=== PATIENT | female | born 1955 | race Caucasian/White ===

== ENCOUNTER 2018-03-27 04:32 | Outpatient (CLI) | payer MEDICARE, BC ==
[~2018-03-27 04:32] MED LIST: AMYL1CAP54 PO; COL100C PO; HYDR2TAB28 PO; LACT1CAP26 PO; LIDO20SO PO; LORA1TAB PO; MAG355OR18 PO; MORP-64 PO; PANT40TA39 PO; PROM25TA14 PO; SENN-161 PO; ZOF4T PO
== END 2018-03-27 23:59 | disposition home or self-care (01) ==
LOC: DIABETIC 04:32
PROVIDERS: ATTEND Family Medicine
DX: Z71.3 Dietary counseling and surveillance (principal); E63.8 Other specified nutritional deficiencies; Z68.20 Body mass index [BMI] 20.0-20.9, adult; K86.1 Other chronic pancreatitis; Z87.891 Personal history of nicotine dependence
CPT/HCPCS: 97802

== ENCOUNTER 2018-10-16 01:37 | Outpatient (CLI) | payer MEDICARE, BC ==
[~2018-10-16 01:37] MED LIST changes: -SENN-161 PO; +SENN-162 PO
== END 2018-10-16 23:59 | disposition home or self-care (01) ==
LOC: DIABETIC 01:37
PROVIDERS: ATTEND Family Medicine
DX: K86.1 Other chronic pancreatitis (principal)
CPT/HCPCS: 97802

== ENCOUNTER 2018-12-24 02:25 | Outpatient (CLI) | payer MEDICARE, BC | END 2018-12-24 23:59 | disposition home or self-care (01) | LOC: DIABETIC 02:25 | PROVIDERS: ATTEND Family Medicine | DX: K86.1 Other chronic pancreatitis (principal); Z71.3 Dietary counseling and surveillance | CPT/HCPCS: 97803 ==

== ENCOUNTER 2021-11-03 08:23 | Emergency (ER) | payer MEDICARE, BC ==
[~2021-11-03] VITALS: Ht 157.5 cm; Wt 48.6 kg
[~2021-11-03 08:23] MED LIST changes: -AMYL1CAP54 PO; -COL100C PO; +DULO30CA52 PO; +FURO20TA4 PO; -HYDR2TAB28 PO; -LACT1CAP26 PO; -LIDO20SO PO; +LIPA1CAP28 PO; -LORA1TAB PO; -MAG355OR18 PO; +MAGN400O6 PO; -MORP-64 PO; +MORP100S7 PO; +ONDA8TAB13 PO; -PANT40TA39 PO; -SENN-162 PO; +SENN8.6T19 PO; -ZOF4T PO
[2021-11-03] MEDS ORDERED: morphine 10mg/ml inj. IV ONE (09:10)
[2021-11-03] MEDS ORDERED: mag hydrox/Alum hydrox/simeth 30ml oral suspension PO ONE (09:20)
[2021-11-03] MEDS ORDERED: LIDOcaine Viscous 15ml cup MM PRN (09:20)
[2021-11-03 09:21] LABS: BASOPHILS % (AUTO) 0.4 % (0-1); EOSINOPHILS % (AUTO) 0.2 % (0-6); LYMPHOCYTES # (AUTO) 0.7 X10'3 (1.1-4.8); LYMPHOCYTES % (AUTO) 7.5 % (21-51); MEAN CORPUSCULAR HEMOGLOBIN 31.2 PG (27.0-31.0); MEAN CORPUSCULAR HGB CONC 34.1 g/dL (33.0-36.5); MEAN CORPUSCULAR VOLUME 91.7 FL (78-98); MEAN PLATELET VOLUME 10.5 FL (7.4-10.4); MONOCYTES # (AUTO) 0.5 X10'3 (0-0.9); MONOCYTES % (AUTO) 5.3 % (2-12); NEUTROPHILS # (AUTO) 7.7 X10'3 (1.8-7.7); NEUTROPHILS % (AUTO) 86.6 % (42-75); PLATELET COUNT 174 X10'3 (140-440); RED BLOOD COUNT 4.47 X10'6 (4.20-5.60); WHITE BLOOD COUNT 8.8 X10'3 (4.5-11.0)
[2021-11-03] MEDS ORDERED: haloperidol lactate 5mg/ml inj IV ONE (09:25)
[2021-11-03] MEDS ORDERED: proMETHazine 6.25 mg/5 ml UD oral syrup PO PRN (09:25)
--- NOTE | 2021-11-03 09:27 | NUR ---
relieving rn for break, pt is constantly moaning loudly, curled in positions, c/o "pancreatitis pain", medicated per order. Pt said pain has decreased to6/10 after receiving morphine, moaning has lessened
[2021-11-03] MEDS ORDERED: normal saline 1000ML IV soln IVB ONE (09:35)
[2021-11-03 10:06] LABS: LARGE PLATELETS FEW; PLATELET ESTIMATE NORMAL
[2021-11-03 10:08] LABS: ALANINE AMINOTRANSFERASE 13 U/L (12-78); ALBUMIN 3.3 G/DL (3.4-5.0); ALBUMIN/GLOBULIN RATIO 0.9 (1.1-1.5); ALKALINE PHOSPHATASE 96 IU/L (46-116); AMYLASE 48 U/L (25-115); ANION GAP 7 (8-16); ASPARTATE AMINO TRANSFERASE 20 U/L (10-37); BILIRUBIN,TOTAL 0.4 MG/DL (0.1-1.0); BLOOD UREA NITROGEN 7 MG/DL (7-18); CALCIUM 9.1 MG/DL (8.5-10.1); CHLORIDE 103 MMOL/L (99-107); CREATININE 0.87 MG/DL (0.40-0.90); GLUCOSE 131 MG/DL (70-104); LIPASE < 50 U/L (73-393); MAGNESIUM 1.8 MG/DL (1.5-2.4); SODIUM 142 MMOL/L (135-145); eGFR 66 ML/MIN
[2021-11-03 10:13] LABS: POTASSIUM 2.8 MMOL/L (3.5-5.1)
[2021-11-03] MEDS ORDERED: potassium chloride 8mEq ER tablet PO SCH (10:15)
[2021-11-03] MEDS ORDERED: potassium Cl 10 mEq/100mL bag IV SCH (10:15)
[2021-11-03] MEDS ORDERED: morphine 4 MG/ML inj SYRINge IV ONE (13:00)
[2021-11-03 13:11] LABS: CLARITY,URINE SLIGHTLY CLOUDY (Clear); COLOR,URINE YELLOW (Yellow); GLUCOSE, URINE NEGATIVE (Neg); KETONES,URINE NEGATIVE (Neg); LEUKOCYTE ESTERASE ,URINE NEGATIVE (Neg); NITRITES, URINE NEGATIVE (Neg); OCCULT BLOOD,URINE NEGATIVE (Neg); PH,URINE 8.5 (4.8-8.0); PROTEIN,URINE NEGATIVE (Neg); UROBILINOGEN,URINE 0.2 E.U/dL (0.2-1.0)
[2021-11-03 13:45] LABS: UA COLLECTION TYPE OTHER
[2021-11-03 13:53] LABS: SQUAMOUS EPITHELIAL CELL,UR MODERATE /LPF (FEW)
[2021-11-03 13:54] LABS: BACTERIA,URINE FEW /HPF (Neg); RBC,URINE 0-2 /HPF (0-2); WBC,URINE 0-4 /HPF (0-4)
[2021-11-03 13:59] LABS: AMORPHOUS PHOSPHATES 1+
[2021-11-03] MEDS ORDERED: POTA-82 PO (14:48)
[2021-11-03 15:06] VITALS: BP 121/56
== END 2021-11-03 15:55 | disposition home or self-care (01) ==
LOC: ER 08:24
DX: R10.84 Generalized abdominal pain (principal); E87.6 Hypokalemia; R11.2 Nausea with vomiting, unspecified; I10 Essential (primary) hypertension; G89.29 Other chronic pain; F41.9 Anxiety disorder, unspecified; F32.A Depression, unspecified; F12.90 Cannabis use, unspecified, uncomplicated; Z90.49 Acquired absence of other specified parts of digestive tract; Z87.11 Personal history of peptic ulcer disease; Z98.51 Tubal ligation status; Z98.890 Other specified postprocedural states; Z88.8 Allergy status to other drugs, medicaments and biological substances; Z88.1 Allergy status to other antibiotic agents; Z79.899 Other long term (current) drug therapy
CPT/HCPCS: 36415; 71045; 80053; 81001; 82140; 82150; 83605; 83690; 83735; 84132; 84145; 85008; 85025; 96365; 96375; 96376; 99285; J2270; J2274; J3480; J7030; Q0169

== ENCOUNTER 2021-12-01 11:04 | Emergency (ER) | payer MEDICARE, BC ==
[~2021-12-01] VITALS: Ht 157.5 cm; Wt 47.7 kg
[~2021-12-01 11:04] MED LIST changes: +POTA-82 PO
[2021-12-01 11:57] LABS: BASOPHILS % (AUTO) 0.5 % (0-1); EOSINOPHILS % (AUTO) 0.6 % (0-6); HEMATOCRIT 42.1 % (35.0-45.0); HEMOGLOBIN 14.5 g/dl (12.0-16.0); MEAN CORPUSCULAR HGB CONC 34.4 g/dL (33.0-36.5); MEAN PLATELET VOLUME 10.8 FL (7.4-10.4); MONOCYTES # (AUTO) 0.5 X10'3 (0-0.9); MONOCYTES % (AUTO) 6.3 % (2-12); NEUTROPHILS # (AUTO) 6.4 X10'3 (1.8-7.7); NEUTROPHILS % (AUTO) 79.6 % (42-75); PLATELET COUNT 177 X10'3 (140-440); RED BLOOD COUNT 4.68 X10'6 (4.20-5.60); RED CELL DISTRIBUTION WIDTH 12.9 % (11.5-14.5)
[2021-12-01 12:04] LABS: ALANINE AMINOTRANSFERASE 13 U/L (12-78); ALBUMIN 3.5 G/DL (3.4-5.0); ALBUMIN/GLOBULIN RATIO 0.9 (1.1-1.5); ALKALINE PHOSPHATASE 101 IU/L (46-116); ANION GAP 16 (8-16); ASPARTATE AMINO TRANSFERASE 17 U/L (10-37); BILIRUBIN,TOTAL 0.5 MG/DL (0.1-1.0); BLOOD UREA NITROGEN 8 MG/DL (7-18); BUN/CREATININE RATIO 9.3 (6.6-38.0); CALCIUM 9.3 MG/DL (8.5-10.1); CHLORIDE 101 MMOL/L (99-107); CREATININE 0.86 MG/DL (0.40-0.90); GLUCOSE 142 MG/DL (70-104); LIPASE < 50 U/L (73-393); SODIUM 145 MMOL/L (135-145); TOTAL CARBON DIOXIDE 27.6 MMOL/L (24-32); TOTAL PROTEIN 7.4 G/DL (6.4-8.2); eGFR 66 ML/MIN
[2021-12-01 12:07] LABS: POTASSIUM 2.8 MMOL/L (3.5-5.1)
[2021-12-01] MEDS ORDERED: POTASSIUM BICARB 20meq eff tab 20 MEQ TABLET.EFF PO ONE (12:10)
[2021-12-01] MEDS ORDERED: magnesium 2GM in 50ml NS 50 ML IV ONE (12:10)
[2021-12-01] MEDS ORDERED: POTASSIUM BICARB 20meq eff tab 20 MEQ TABLET.EFF PO SCH (12:10)
[2021-12-01] MEDS ORDERED: potassium Cl 10 mEq/100mL bag IV ONE ×2 (13:30→14:30)
[2021-12-01] MEDS: morphine 4 MG/ML inj SYRINge IV PRN ×2 (13:49→14:12)
--- NOTE | 2021-12-01 14:25 | NUR ---
pt to/from ct without incident
[2021-12-01 14:33] LABS: CLARITY,URINE CLOUDY (Clear); COLOR,URINE YELLOW (Yellow); GLUCOSE, URINE NEGATIVE (Neg); KETONES,URINE TRACE mg/dl (Neg); LEUKOCYTE ESTERASE ,URINE NEGATIVE (Neg); NITRITES, URINE NEGATIVE (Neg); OCCULT BLOOD,URINE NEGATIVE (Neg); PROTEIN,URINE NEGATIVE (Neg); UROBILINOGEN,URINE 0.2 E.U/dL (0.2-1.0)
[2021-12-01 14:38] LABS: UA COLLECTION TYPE CLN CATCH MIDSTREAM
[2021-12-01 14:39] LABS: SQUAMOUS EPITHELIAL CELL,UR FEW /LPF (FEW)
[2021-12-01 14:40] LABS: AMORPHOUS PHOSPHATES 3+; BACTERIA,URINE 1+ /HPF (Neg); RBC,URINE 0-2 /HPF (0-2); WBC,URINE 0-4 /HPF (0-4)
[2021-12-01] MEDS ORDERED: morphine 4 MG/ML inj SYRINge IV ONE (16:45)
[2021-12-01 17:40] VITALS: BP 138/58
== END 2021-12-01 17:58 | disposition home or self-care (01) ==
LOC: ER 11:05
DX: R10.9 Unspecified abdominal pain (principal); R19.7 Diarrhea, unspecified; R11.2 Nausea with vomiting, unspecified; I10 Essential (primary) hypertension; G89.29 Other chronic pain; M54.9 Dorsalgia, unspecified; F32.9 Major depressive disorder, single episode, unspecified; F32.A Depression, unspecified; F12.10 Cannabis abuse, uncomplicated; Z88.8 Allergy status to other drugs, medicaments and biological substances; Z88.2 Allergy status to sulfonamides; Z88.6 Allergy status to analgesic agent
CPT/HCPCS: 36415; 74176; 80053; 81001; 83690; 85025; 96365; 96375; 96376; 99284; J2270; J3475; J3480; J7030

== ENCOUNTER 2021-12-28 14:03 | Emergency (ER) | payer MEDICARE, BC ==
[~2021-12-28] VITALS: Ht 157.5 cm; Wt 52.3 kg
[2021-12-28 14:20] VITALS: BP 146/71
[2021-12-28] MEDS ORDERED: morphine 4 MG/ML inj SYRINge IM ONE (16:20)
== END 2021-12-28 17:23 | disposition home or self-care (01) ==
LOC: ER 14:04
DX: M79.642 Pain in left hand (principal); G89.29 Other chronic pain; M54.50 Low back pain, unspecified; F12.90 Cannabis use, unspecified, uncomplicated; Z88.8 Allergy status to other drugs, medicaments and biological substances; Z90.49 Acquired absence of other specified parts of digestive tract; Z98.51 Tubal ligation status
CPT/HCPCS: 29125; 73110; 73130; 99284; J2270; A4565

== ENCOUNTER 2022-03-14 10:19 | Emergency (ER) | payer MEDICARE, BC ==
[~2022-03-14] VITALS: Ht 154.9 cm; Wt 50.0 kg
[2022-03-14] MEDS ORDERED: ketorolac tromethamine 15mg/ml inj. IV ONE (10:50)
[2022-03-14 11:19] LABS: BASOPHILS % (AUTO) 0.6 % (0-1); EOSINOPHILS % (AUTO) 0.4 % (0-6); HEMATOCRIT 41.2 % (35.0-45.0); HEMOGLOBIN 13.9 g/dl (12.0-16.0); LYMPHOCYTES % (AUTO) 16.7 % (21-51); MEAN CORPUSCULAR HEMOGLOBIN 31.4 PG (27.0-31.0); MEAN CORPUSCULAR HGB CONC 33.7 g/dL (33.0-36.5); MEAN CORPUSCULAR VOLUME 93.3 FL (78-98); MEAN PLATELET VOLUME 10.6 FL (7.4-10.4); MONOCYTES # (AUTO) 0.5 X10'3 (0-0.9); MONOCYTES % (AUTO) 7.5 % (2-12); NEUTROPHILS # (AUTO) 4.7 X10'3 (1.8-7.7); NEUTROPHILS % (AUTO) 74.8 % (42-75); PLATELET COUNT 167 X10'3 (140-440); RED BLOOD COUNT 4.42 X10'6 (4.20-5.60); RED CELL DISTRIBUTION WIDTH 13.1 % (11.5-14.5); WHITE BLOOD COUNT 6.2 X10'3 (4.5-11.0)
[2022-03-14 11:29] LABS: ALANINE AMINOTRANSFERASE 14 U/L (12-78); ALBUMIN 3.2 G/DL (3.4-5.0); ALBUMIN/GLOBULIN RATIO 0.9 (1.1-1.5); ALKALINE PHOSPHATASE 99 IU/L (46-116); ANION GAP 6 (8-16); ASPARTATE AMINO TRANSFERASE 18 U/L (10-37); BILIRUBIN,TOTAL 0.4 MG/DL (0.1-1.0); BLOOD UREA NITROGEN 6 MG/DL (7-18); BUN/CREATININE RATIO 7.4 (6.6-38.0); CALCIUM 9.6 MG/DL (8.5-10.1); CHLORIDE 103 MMOL/L (99-107); CREATININE 0.81 MG/DL (0.40-0.90); GLUCOSE 133 MG/DL (70-104); LIPASE < 50 U/L (73-393); POTASSIUM 3.4 MMOL/L (3.5-5.1); SODIUM 140 MMOL/L (135-145); TOTAL CARBON DIOXIDE 31.5 MMOL/L (24-32); TOTAL PROTEIN 6.9 G/DL (6.4-8.2); eGFR 71 ML/MIN
[2022-03-14] MEDS ORDERED: morphine 4 MG/ML inj SYRINge IV ONE (11:45)
[2022-03-14 11:50] LABS: ETHANOL < 0.010 GM/DL (0.0-0.010)
[2022-03-14] MEDS ORDERED: ondansetron/PF 4mg/2ml inj IV ONE (11:55)
[2022-03-14 11:59] LABS: LARGE PLATELETS FEW; PLATELET ESTIMATE NORMAL
--- NOTE | 2022-03-14 13:02 | NUR ---
CALLED MR [facility] INFORMED TO SANITOR PT .
[2022-03-14 14:02] VITALS: BP 118/57
== END 2022-03-14 14:00 | disposition home or self-care (01) ==
LOC: ER 10:20
DX: R10.11 Right upper quadrant pain (principal); G89.29 Other chronic pain; R11.0 Nausea; I10 Essential (primary) hypertension; F41.9 Anxiety disorder, unspecified; F32.A Depression, unspecified; F12.90 Cannabis use, unspecified, uncomplicated; Z87.11 Personal history of peptic ulcer disease; Z90.49 Acquired absence of other specified parts of digestive tract; Z98.51 Tubal ligation status; Z98.890 Other specified postprocedural states; Z88.8 Allergy status to other drugs, medicaments and biological substances; Z79.899 Other long term (current) drug therapy
CPT/HCPCS: 36415; 80053; 80320; 82140; 83690; 85008; 85025; 96374; 96375; 99284; J1885; J2270; J2405

== ENCOUNTER 2022-04-24 09:51 | Inpatient (IN) | payer MEDICARE, BC ==
[~2022-04-24] VITALS: Ht 157.5 cm; Wt 48.0 kg
[2022-04-24] MEDS ORDERED: ondansetron/PF 4mg/2ml inj IV ONE ×3 (10:15→20:08)
[2022-04-24] MEDS ORDERED: morphine 4 MG/ML inj SYRINge IV ONE ×3 (10:15→18:45)
[2022-04-24] MEDS ORDERED: LORazepam 2 mg/ml vial IV ONE (10:15)
--- NOTE | 2022-04-24 10:16 | NUR ---
ATTEMPT EKG, UNABLE AT THIS TIME PER PATIENTS PAIN LEVEL. AWAITING PAIN MED ORDERS.
--- NOTE | 2022-04-24 10:29 | NUR ---
ATTEMPT EKG AFTER PAIN MEDS, PATIENT REFUSING TO LAY ON BACK FOR EKG TEST. MADE AWARE.
[2022-04-24 10:38] LABS: BASOPHILS % (AUTO) 0.4 % (0-1); EOSINOPHILS % (AUTO) 0.3 % (0-6); HEMATOCRIT 39.8 % (35.0-45.0); HEMOGLOBIN 13.7 g/dl (12.0-16.0); LYMPHOCYTES # (AUTO) 0.8 X10'3 (1.1-4.8); LYMPHOCYTES % (AUTO) 12.5 % (21-51); MEAN CORPUSCULAR HEMOGLOBIN 31.9 PG (27.0-31.0); MEAN CORPUSCULAR HGB CONC 34.5 g/dL (33.0-36.5); MEAN CORPUSCULAR VOLUME 92.6 FL (78-98); MEAN PLATELET VOLUME 10.7 FL (7.4-10.4); MONOCYTES # (AUTO) 0.3 X10'3 (0-0.9); NEUTROPHILS # (AUTO) 5.5 X10'3 (1.8-7.7); NEUTROPHILS % (AUTO) 81.8 % (42-75); PLATELET COUNT 178 X10'3 (140-440); RED CELL DISTRIBUTION WIDTH 12.7 % (11.5-14.5); WHITE BLOOD COUNT 6.8 X10'3 (4.5-11.0)
[2022-04-24 11:16] LABS: LARGE PLATELETS FEW; PLATELET ESTIMATE NORMAL
[2022-04-24 11:53] LABS: ALANINE AMINOTRANSFERASE 19 U/L (12-78); ALBUMIN/GLOBULIN RATIO 0.8 (1.1-1.5); ALKALINE PHOSPHATASE 90 IU/L (46-116); ANION GAP 7 (8-16); ASPARTATE AMINO TRANSFERASE 21 U/L (10-37); BILIRUBIN,TOTAL 0.3 MG/DL (0.1-1.0); BLOOD UREA NITROGEN 6 MG/DL (7-18); BUN/CREATININE RATIO 6.8 (6.6-38.0); CALCIUM 9.5 MG/DL (8.5-10.1); CHLORIDE 102 MMOL/L (99-107); CREATININE 0.88 MG/DL (0.40-0.90); GLUCOSE 137 MG/DL (70-104); LIPASE < 50 U/L (73-393); SODIUM 141 MMOL/L (135-145); TOTAL CARBON DIOXIDE 32.5 MMOL/L (24-32); TOTAL PROTEIN 6.6 G/DL (6.4-8.2); eGFR 64 ML/MIN
[2022-04-24 11:56] LABS: POTASSIUM 2.7 MMOL/L (3.5-5.1)
[2022-04-24] MEDS ORDERED: magnesium 2GM in 50ml NS 50 ML IV PRN (12:00)
[2022-04-24] MEDS ORDERED: POTASSIUM BICARB 20meq eff tab 20 MEQ TABLET.EFF PO PRN (12:00)
[2022-04-24] MEDS ORDERED: potassium Cl 20 mEq SR tablet PO STA (12:10)
[2022-04-24] MEDS: potassium CL 10mEq/100ml bag 100 ML IV PRN (12:37)
[2022-04-24 16:40] LABS: ALBUMIN 3.1 G/DL (3.4-5.0); ANION GAP 9 (8-16); BLOOD UREA NITROGEN 5 MG/DL (7-18); CALCIUM 9.4 MG/DL (8.5-10.1); CHLORIDE 103 MMOL/L (99-107); CREATININE 0.71 MG/DL (0.40-0.90); GLUCOSE 135 MG/DL (70-104); POTASSIUM 3.4 MMOL/L (3.5-5.1); SODIUM 142 MMOL/L (135-145); TOTAL CARBON DIOXIDE 29.7 MMOL/L (24-32); eGFR 83 ML/MIN
[2022-04-24 17:00] LABS: CLARITY,URINE CLEAR (Clear); COLOR,URINE YELLOW (Yellow); GLUCOSE, URINE NEGATIVE (Neg); KETONES,URINE TRACE mg/dl (Neg); LEUKOCYTE ESTERASE ,URINE TRACE (Neg); NITRITES, URINE NEGATIVE (Neg); OCCULT BLOOD,URINE NEGATIVE (Neg); PH,URINE 8.5 (4.8-8.0); PROTEIN,URINE NEGATIVE (Neg); UROBILINOGEN,URINE 0.2 E.U/dL (0.2-1.0)
[2022-04-24 17:05] LABS: UA COLLECTION TYPE CLN CATCH MIDSTREAM
[2022-04-24 17:07] LABS: BACTERIA,URINE 2+ /HPF (Neg); MUCUS STRANDS NONE SEEN /LPF (Neg); RBC,URINE NONE SEEN /HPF (0-2); SQUAMOUS EPITHELIAL CELL,UR MANY /LPF (FEW); WBC,URINE 0-4 /HPF (0-4)
[2022-04-24] MEDS ORDERED: famotidine/PF 10 mg/ml inj IV ONE (20:00)
[2022-04-24] MEDS ORDERED: proCHLORperazine 10 MG/2 ml inj IV ONE (20:00)
[2022-04-24] MEDS ORDERED: PROM25TA14 PO (22:05)
[2022-04-24] MEDS ORDERED: potassium Cl 40MEQ/1/2NS 520ml 520 ML IV PRN (22:50)
[2022-04-24] MEDS ORDERED: magnesium hydroxide 30ml (MOM) UD suspension PO PRN ×2 (22:50)
[2022-04-24] MEDS ORDERED: sennosides 8.6mg tablet PO PRN (22:50)
[2022-04-24] MEDS: normal saline 1000ml 1,000 ML IV SCH (22:50)
[2022-04-24] MEDS ORDERED: magnesium 4gm in 100ml NS 100 ML IV PRN (22:50)
[2022-04-24] MEDS ORDERED: acetaminophen 325mg tablet PO PRN ×2 (22:50)
[2022-04-24] MEDS ORDERED: potassium Cl 20 mEq SR tablet PO PRN ×2 (22:50)
[2022-04-24] MEDS ORDERED: mag hydrox/Alum hydrox/simeth 30ml oral suspension PO PRN (22:50)
[2022-04-24] MEDS: diatr meglu/diatrizoate 30ml oral sol.-(3 dose) bottle PO SCH (22:58)
[2022-04-24] MEDS ORDERED: ondansetron 4mg rapidly disintigrating tab PO PRN (23:00)
[2022-04-24] MEDS ORDERED: morphine 10mg/0.5ml (conc. morphine) oral syringe PO PRN (23:05)
[2022-04-24] MEDS ORDERED: proMETHazine 25mg rectal suppository RC PRN (23:10)
[2022-04-24] MEDS: morphine 4 MG/ML inj SYRINge IV PRN (23:17)
[2022-04-24] MEDS: ondansetron/PF 4mg/2ml inj IV PRN (23:18)
[2022-04-25] MEDS ORDERED: proMETHazine 25mg tablet PO SCH
--- NOTE | 2022-04-25 00:01 | NUR ---
Pt. is refusing gastrografin and having ct scan with contrast. Dr. Perea was notified.
--- NOTE | 2022-04-25 00:12 | NUR ---
pt. refusing pheneregan at this time.
[2022-04-25] MEDS: morphine 4 MG/ML inj SYRINge IV PRN ×8 (01:35→23:58)
[2022-04-25] MEDS: ondansetron/PF 4mg/2ml inj IV PRN ×3 (06:56→21:54)
[2022-04-25] MEDS: diatr meglu/diatrizoate 30ml oral sol.-(3 dose) bottle PO SCH ×2 (07:00→21:59)
--- NOTE | 2022-04-25 07:04 | NUR ---
PT C/O ABD PAIN AND NAUSEA. MEDICATED WITH MORPHINE, ZOFRAN, AND PHENERGAN
[2022-04-25] MEDS: proMETHazine 25mg tablet PO SCH ×3 (08:00→16:00)
[2022-04-25] MEDS: potassium Cl 20 mEq SR tablet PO SCH (08:00)
[2022-04-25] MEDS: LIPASE/PROTEASE/AMYLASE 4,200 unit CAPSULE.DR PO SCH ×3 (08:00→18:00)
[2022-04-25] MEDS ORDERED: docusate sod 100mg capsule PO SCH (08:00)
[2022-04-25] MEDS ORDERED: furosemide 20MG tablet PO SCH (08:00)
[2022-04-25] MEDS: duloxetine 30mg CAPSULE.DR PO SCH (08:00)
[2022-04-25] MEDS: K and/or MAG REPLACEMENT MC SCH ×2 (08:00→21:33)
[2022-04-25 09:30] LABS: EOSINOPHILS % (AUTO) 0 % (0-6); HEMOGLOBIN 13.8 g/dl (12.0-16.0); LYMPHOCYTES # (AUTO) 1.1 X10'3 (1.1-4.8); MEAN PLATELET VOLUME 10.8 FL (7.4-10.4); MONOCYTES # (AUTO) 0.6 X10'3 (0-0.9)
[2022-04-25 09:31] LABS: BASOPHILS % (AUTO) 0.2 % (0-1); HEMATOCRIT 39.4 % (35.0-45.0); LYMPHOCYTES % (AUTO) 10.8 % (21-51); MEAN CORPUSCULAR HEMOGLOBIN 31.9 PG (27.0-31.0); MEAN CORPUSCULAR HGB CONC 34.9 g/dL (33.0-36.5); MEAN CORPUSCULAR VOLUME 91.5 FL (78-98); MONOCYTES % (AUTO) 6.1 % (2-12); NEUTROPHILS # (AUTO) 8.4 X10'3 (1.8-7.7); NEUTROPHILS % (AUTO) 82.9 % (42-75); PLATELET COUNT 189 X10'3 (140-440); RED BLOOD COUNT 4.31 X10'6 (4.20-5.60); RED CELL DISTRIBUTION WIDTH 12.7 % (11.5-14.5); WHITE BLOOD COUNT 10.2 X10'3 (4.5-11.0)
[2022-04-25 09:51] LABS: ALANINE AMINOTRANSFERASE 17 U/L (12-78); ALBUMIN 2.9 G/DL (3.4-5.0); ALBUMIN/GLOBULIN RATIO 0.8 (1.1-1.5); ALKALINE PHOSPHATASE 88 IU/L (46-116); ANION GAP 11 (8-16); ASPARTATE AMINO TRANSFERASE 26 U/L (10-37); BILIRUBIN,TOTAL 0.4 MG/DL (0.1-1.0); BLOOD UREA NITROGEN 4 MG/DL (7-18); CHLORIDE 104 MMOL/L (99-107); CREATININE 0.67 MG/DL (0.40-0.90); GLUCOSE 115 MG/DL (70-104); MAGNESIUM 1.7 MG/DL (1.5-2.4); POTASSIUM 3.3 MMOL/L (3.5-5.1); SODIUM 142 MMOL/L (135-145); TOTAL CARBON DIOXIDE 26.6 MMOL/L (24-32); TOTAL PROTEIN 6.6 G/DL (6.4-8.2); eGFR 88 ML/MIN
[2022-04-25 10:15] LABS: LARGE PLATELETS FEW; PLATELET ESTIMATE NORMAL
[2022-04-25] MEDS: normal saline 1000ml 1,000 ML IV SCH ×2 (11:30→21:46)
--- NOTE | 2022-04-25 11:37 | NUR ---
pt continues to c/o abd pain. educated pt re importance of ct with contrast. pt continues to refuse oral or iv contrast. pt states she has had it before and will not do it again. Dr han notified she states she will come down and see pt. CT notified
--- NOTE | 2022-04-25 14:12 | NUR ---
PT CONTINUES TO REFUSE ALL PO MEDS SHE STATES ONLY WANTS IV MORPHINE AND IV ZOFRAN. PT MEDICATED WITH BOTH
[2022-04-25] MEDS ORDERED: LUBI8CAP5 PO (16:58)
[2022-04-25] MEDS ORDERED: FURO40TA4 PO (16:58)
[2022-04-25] MEDS ORDERED: OMEP20CA16 PO (17:07)
[2022-04-25] MEDS ORDERED: ONDA4TAB12 PO (17:07)
[2022-04-25] MEDS ORDERED: [UNRECOGNIZED DRUG - OTHER] PO (17:07)
[2022-04-25] MEDS ORDERED: [UNRECOGNIZED DRUG - OTHER] PO (17:07)
[2022-04-25] MEDS ORDERED: MAG355OR18 PO (17:07)
[2022-04-25 18:00] VITALS: BP 143/82
[2022-04-25 21:25] VITALS: BP 143/82
--- NOTE | 2022-04-25 21:25 | NUR ---
PATIENT ADMITTED TO ROOM 356B FROM ER FOR INTRACTABLE PAIN WITH NAUSEA AND VOMITING. PLACED COMFORTABLE IN BED. VITAL SIGNS TAKEN AND RECORDED.
[2022-04-25] MEDS: sennosides 8.6mg tablet PO SCH (21:32)
[2022-04-25] MEDS ORDERED: diphenhydrAMINE 50 mg/ml inj IV PRN (21:40)
[2022-04-25] MEDS: enoxaparin 40mg/0.4ml syringe SQ SCH (21:57)
[2022-04-25 22:00] VITALS: BP 121/70
[2022-04-26] MEDS: morphine 4 MG/ML inj SYRINge IV PRN ×6 (02:22→19:59)
[2022-04-26] MEDS: ondansetron/PF 4mg/2ml inj IV PRN ×3 (04:22→19:54)
[2022-04-26] MEDS: normal saline 1000ml 1,000 ML IV SCH ×2 (05:16→15:38)
[2022-04-26 06:00] VITALS: BP 152/76
--- NOTE | 2022-04-26 06:45 | NUR ---
Problems reprioritized. Patient report given, questions answered & plan of care reviewed with RANDOLPH OMALLEY.
[2022-04-26] MEDS: diatr meglu/diatrizoate 30ml oral sol.-(3 dose) bottle PO SCH ×2 (07:51→10:20)
[2022-04-26] MEDS: duloxetine 30mg CAPSULE.DR PO SCH (07:54)
[2022-04-26] MEDS: proMETHazine 25mg tablet PO SCH ×3 (07:56→15:36)
[2022-04-26] MEDS: potassium Cl 20 mEq SR tablet PO SCH (08:00)
[2022-04-26] MEDS: sennosides 8.6mg tablet PO SCH ×2 (08:00→22:27)
[2022-04-26] MEDS: LIPASE/PROTEASE/AMYLASE 4,200 unit CAPSULE.DR PO SCH ×3 (08:00→17:52)
[2022-04-26] MEDS: K and/or MAG REPLACEMENT MC SCH ×2 (08:00→20:00)
[2022-04-26 08:39] LABS: BASOPHILS % (AUTO) 0.4 % (0-1); EOSINOPHILS # (AUTO) 0.1 X10'3 (0-0.9); EOSINOPHILS % (AUTO) 0.5 % (0-6); HEMATOCRIT 40.5 % (35.0-45.0); HEMOGLOBIN 13.8 g/dl (12.0-16.0); LYMPHOCYTES # (AUTO) 1.8 X10'3 (1.1-4.8); LYMPHOCYTES % (AUTO) 17.7 % (21-51); MEAN CORPUSCULAR HEMOGLOBIN 31.2 PG (27.0-31.0); MEAN CORPUSCULAR HGB CONC 34.2 g/dL (33.0-36.5); MEAN CORPUSCULAR VOLUME 91.3 FL (78-98); MEAN PLATELET VOLUME 10.7 FL (7.4-10.4); MONOCYTES # (AUTO) 0.7 X10'3 (0-0.9); MONOCYTES % (AUTO) 6.7 % (2-12); NEUTROPHILS # (AUTO) 7.5 X10'3 (1.8-7.7); NEUTROPHILS % (AUTO) 74.7 % (42-75); PLATELET COUNT 187 X10'3 (140-440); RED BLOOD COUNT 4.44 X10'6 (4.20-5.60); RED CELL DISTRIBUTION WIDTH 12.5 % (11.5-14.5)
[2022-04-26 08:44] LABS: ALANINE AMINOTRANSFERASE 14 U/L (12-78); ALBUMIN 2.9 G/DL (3.4-5.0); ALBUMIN/GLOBULIN RATIO 0.9 (1.1-1.5); ALKALINE PHOSPHATASE 86 IU/L (46-116); ANION GAP 11 (8-16); ASPARTATE AMINO TRANSFERASE 27 U/L (10-37); BILIRUBIN,TOTAL 0.6 MG/DL (0.1-1.0); BLOOD UREA NITROGEN 6 MG/DL (7-18); BUN/CREATININE RATIO 9.4 (6.6-38.0); CALCIUM 9.1 MG/DL (8.5-10.1); CHLORIDE 102 MMOL/L (99-107); CREATININE 0.64 MG/DL (0.40-0.90); GLUCOSE 116 MG/DL (70-104); MAGNESIUM 1.6 MG/DL (1.5-2.4); POTASSIUM 3.1 MMOL/L (3.5-5.1); SODIUM 136 MMOL/L (135-145); TOTAL CARBON DIOXIDE 23.2 MMOL/L (24-32); TOTAL PROTEIN 6.3 G/DL (6.4-8.2); eGFR > 90 ML/MIN
--- NOTE | 2022-04-26 10:03 | NUR ---
PAGER ID: [phone] MESSAGE: Deena Surg [id number] Re: [id number] Marcelo please call re: IV contrast concerns. Also, patient very painful can we do a CADD? Addendum: 04/26/22 at 1010 by Deena Johnson RN Per Dr Anne no Cadd pump. Dr Anne aware patients pain is still high. Also advised Dr Anne that patient states the last time she had IV contrast it made her feel like she was going to . After discussing with Dr Anne patient is only going to get PO contrast.
[2022-04-26 11:00] VITALS: BP 135/86
[2022-04-26] MEDS: potassium CL 10mEq/100ml bag 100 ML IV PRN ×4 (11:03→22:50)
[2022-04-26] MEDS ORDERED: LORazepam 2 mg/ml vial IV ONE (12:05)
[2022-04-26 14:30] VITALS: BP 159/70
--- NOTE | 2022-04-26 15:20 | NUR ---
Student documentation: I have reviewed and agree with all interventions, assessments performed and documented by Karen AZAR 1st semester student.
--- NOTE | 2022-04-26 16:55 | NUR ---
PAGER ID: [phone] MESSAGE: Deena Surg [phone] Re: Marcelo ThomasB please call re: Terence
--- NOTE | 2022-04-26 16:59 | NUR ---
Received orders for Ativan 0.5mg IV Q6h prn , also ok to give Zofran aware patient had Phenergan 85 min ago .
[2022-04-26] MEDS: LORazepam 2 mg/ml vial IV PRN (17:17)
[2022-04-26 18:00] VITALS: BP 163/80
--- NOTE | 2022-04-26 18:23 | NUR ---
Problems reprioritized. Patient report given, questions answered & plan of care reviewed with Jania Dykes RN.
--- NOTE | 2022-04-26 18:30 | NUR ---
Patient in room [facility]. I have received report from RANDOLPH OMALLEY and had the opportunity to ask questions and assume patient care.
[2022-04-26 22:00] VITALS: BP 164/98
[2022-04-26] MEDS: enoxaparin 40mg/0.4ml syringe SQ SCH (22:27)
[2022-04-27] MEDS: morphine 4 MG/ML inj SYRINge IV PRN ×4 (00:14→14:53)
[2022-04-27] MEDS: ondansetron/PF 4mg/2ml inj IV PRN ×2 (02:39→09:58)
[2022-04-27] MEDS: proMETHazine 25mg tablet PO SCH ×3 (03:59→07:38)
[2022-04-27 06:00] VITALS: BP 165/76
[2022-04-27] MEDS: normal saline 1000ml 1,000 ML IV SCH (06:06)
--- NOTE | 2022-04-27 06:30 | NUR ---
Problems reprioritized. Patient report given, questions answered & plan of care reviewed with STEVEN OMALLEY.
--- NOTE | 2022-04-27 06:35 | NUR ---
Patient in room [facility]. I have received report from Jania Dykes RN and had the opportunity to ask questions and assume patient care.
[2022-04-27 06:36] LABS: BASOPHILS # (AUTO) 0.1 X10'3 (0-0.2); BASOPHILS % (AUTO) 0.6 % (0-1); EOSINOPHILS # (AUTO) 0.1 X10'3 (0-0.9); EOSINOPHILS % (AUTO) 1.6 % (0-6); HEMATOCRIT 40.8 % (35.0-45.0); HEMOGLOBIN 13.8 g/dl (12.0-16.0); LYMPHOCYTES % (AUTO) 21.8 % (21-51); MEAN CORPUSCULAR HEMOGLOBIN 30.8 PG (27.0-31.0); MEAN CORPUSCULAR HGB CONC 33.8 g/dL (33.0-36.5); MEAN PLATELET VOLUME 10.5 FL (7.4-10.4); MONOCYTES # (AUTO) 0.7 X10'3 (0-0.9); MONOCYTES % (AUTO) 8.1 % (2-12); NEUTROPHILS # (AUTO) 6.1 X10'3 (1.8-7.7); NEUTROPHILS % (AUTO) 67.9 % (42-75); PLATELET COUNT 181 X10'3 (140-440); RED BLOOD COUNT 4.48 X10'6 (4.20-5.60); RED CELL DISTRIBUTION WIDTH 12.4 % (11.5-14.5); WHITE BLOOD COUNT 9.1 X10'3 (4.5-11.0)
[2022-04-27 07:07] LABS: ALANINE AMINOTRANSFERASE 17 U/L (12-78); ALBUMIN 2.7 G/DL (3.4-5.0); ALBUMIN/GLOBULIN RATIO 0.8 (1.1-1.5); ALKALINE PHOSPHATASE 78 IU/L (46-116); ANION GAP 10 (8-16); ASPARTATE AMINO TRANSFERASE 25 U/L (10-37); BILIRUBIN,TOTAL 0.5 MG/DL (0.1-1.0); BLOOD UREA NITROGEN 6 MG/DL (7-18); BUN/CREATININE RATIO 9.5 (6.6-38.0); CALCIUM 8.8 MG/DL (8.5-10.1); CHLORIDE 101 MMOL/L (99-107); CREATININE 0.63 MG/DL (0.40-0.90); GLUCOSE 85 MG/DL (70-104); MAGNESIUM 1.7 MG/DL (1.5-2.4); POTASSIUM 3.2 MMOL/L (3.5-5.1); SODIUM 136 MMOL/L (135-145); TOTAL CARBON DIOXIDE 24.7 MMOL/L (24-32); TOTAL PROTEIN 6.1 G/DL (6.4-8.2); eGFR > 90 ML/MIN
[2022-04-27] MEDS: sennosides 8.6mg tablet PO SCH (07:38)
[2022-04-27] MEDS: potassium Cl 20 mEq SR tablet PO SCH (07:38)
[2022-04-27] MEDS: duloxetine 30mg CAPSULE.DR PO SCH (07:38)
[2022-04-27] MEDS: LIPASE/PROTEASE/AMYLASE 4,200 unit CAPSULE.DR PO SCH ×2 (08:00→13:00)
[2022-04-27] MEDS: K and/or MAG REPLACEMENT MC SCH (08:00)
[2022-04-27 10:00] VITALS: BP 166/77
[2022-04-27] MEDS: LORazepam 2 mg/ml vial IV PRN (11:12)
[2022-04-27] MEDS ORDERED: PROM25TA14 PO (13:41)
[2022-04-27] MEDS ORDERED: ONDA8TAB13 PO (13:41)
[2022-04-27] MEDS ORDERED: OMEP20CA16 PO (13:41)
--- NOTE | 2022-04-27 15:15 | NUR ---
Pt Dc to home with . pt is A & O x4, painful and teary eyed. Pt states she feels nauseated, and 9/10 pain. States she doesn't want to go home. Pt says she will go home but understands she cannot be here too long. Pt verbalizes understanding of all DC orders and is able to teach back DC orders. Pt will continue home meds and make appropriate changes to Zofran 8mg instead of 4mg. Pt does not have new meds. Pt got dressed and IV's were removed intact x2. came to picker pt, pt wheeled to the front.
[2022-04-27] MEDS ORDERED: POTA8CAP20 PO (15:47)
== END 2022-04-27 15:21 | disposition home or self-care (01) | DRG 392 ==
LOC: ER 09:52 → ED HOLD 22:53 → EDBEDREQ 04-25 02:01 → SUR 3N 04-25 21:21
PROVIDERS: ADMIT Family Medicine; ATTEND Internal Medicine
DX: R11.2 Nausea with vomiting, unspecified (principal); K86.1 Other chronic pancreatitis; E44.1 Mild protein-calorie malnutrition; Z68.1 Body mass index [BMI] 19.9 or less, adult; E87.6 Hypokalemia; F32.A Depression, unspecified; Z66 Do not resuscitate; F41.9 Anxiety disorder, unspecified; F12.90 Cannabis use, unspecified, uncomplicated; M54.50 Low back pain, unspecified; G89.4 Chronic pain syndrome; I10 Essential (primary) hypertension; Z87.11 Personal history of peptic ulcer disease; Z88.8 Allergy status to other drugs, medicaments and biological substances; Z90.49 Acquired absence of other specified parts of digestive tract; Z98.51 Tubal ligation status; Z79.899 Other long term (current) drug therapy; F19.90 Other psychoactive substance use, unspecified, uncomplicated
CPT/HCPCS: 36415; 74176; 80048; 80053; 81001; 83605; 83690; 83735; 84145; 84484; 85008; 85025; 87040; 87081; 92508; 92616; 93005; 96361; 96365; 96375; 96376; 97116; 97161; 99285; G0378; J1650; J2060; J2270; J2405; J3475; J3480; J3490; J7030; Q0169; Q9963

== ENCOUNTER 2022-11-04 12:08 | Emergency (ER) | payer MEDICARE, BC ==
[~2022-11-04] VITALS: Ht 160 cm; Wt 55.0 kg
[~2022-11-04 12:08] MED LIST changes: -FURO20TA4 PO; +LUBI8CAP5 PO; +MAG355OR18 PO; +OMEP40CA21 PO; +ONDA-103 PO; -ONDA8TAB13 PO; +POTA-208 PO; -POTA-82 PO; -PROM25TA14 PO; +PROM50TA3 PO; +SENN-283 PO; -SENN8.6T19 PO; +[UNRECOGNIZED DRUG - OTHER] PO
[2022-11-04 14:10] LABS: EOSINOPHILS % (AUTO) 0.3 % (0-6); HEMOGLOBIN 13.4 g/dl (12.0-16.0); LYMPHOCYTES # (AUTO) 1.1 X10'3 (1.1-4.8); MONOCYTES # (AUTO) 0.5 X10'3 (0-0.9); NEUTROPHILS # (AUTO) 5.3 X10'3 (1.8-7.7); RED CELL DISTRIBUTION WIDTH 13.1 % (11.5-14.5)
[2022-11-04 14:11] LABS: BASOPHILS % (AUTO) 0.7 % (0-1); HEMATOCRIT 39.9 % (35.0-45.0); LYMPHOCYTES % (AUTO) 15.5 % (21-51); MEAN CORPUSCULAR HEMOGLOBIN 31.2 PG (27.0-31.0); MEAN CORPUSCULAR HGB CONC 33.7 g/dL (33.0-36.5); MEAN CORPUSCULAR VOLUME 92.6 FL (78-98); MONOCYTES % (AUTO) 7.2 % (2-12); NEUTROPHILS % (AUTO) 76.3 % (42-75); PLATELET COUNT 196 X10'3 (140-440); RED BLOOD COUNT 4.31 X10'6 (4.20-5.60); WHITE BLOOD COUNT 6.9 X10'3 (4.5-11.0)
[2022-11-04] MEDS ORDERED: morphine 2 MG/ML inj. syringe IV ONE (14:15)
[2022-11-04] MEDS ORDERED: haloperidol lactate 5mg/ml inj IM ONE (14:15)
[2022-11-04 14:26] LABS: LARGE PLATELETS FEW; PLATELET ESTIMATE NORMAL
[2022-11-04 14:43] LABS: ALANINE AMINOTRANSFERASE 9 U/L (12-78); ALBUMIN 3.2 G/DL (3.4-5.0); ALKALINE PHOSPHATASE 70 IU/L (46-116); AMYLASE 39 U/L (25-115); ANION GAP 5 (8-16); ASPARTATE AMINO TRANSFERASE 18 U/L (10-37); BILIRUBIN,TOTAL 0.3 MG/DL (0.1-1.0); BLOOD UREA NITROGEN 4 MG/DL (7-18); BUN/CREATININE RATIO 6.2 (10.0-20.0); CALCIUM 9.3 MG/DL (8.5-10.1); CHLORIDE 105 MMOL/L (99-107); CREATININE 0.65 MG/DL (0.40-0.90); GLUCOSE 121 MG/DL (70-104); LIPASE < 50 U/L (73-393); POTASSIUM 3.3 MMOL/L (3.5-5.1); SODIUM 140 MMOL/L (135-145); TOTAL CARBON DIOXIDE 30.4 MMOL/L (24-32); TOTAL PROTEIN 6.3 G/DL (6.4-8.2); eGFR > 90 ML/MIN
[2022-11-04 15:34] VITALS: BP 106/52
== END 2022-11-04 16:48 | disposition home or self-care (01) ==
LOC: ER 12:09
DX: R10.10 Upper abdominal pain, unspecified (principal); G89.29 Other chronic pain; I11.9 Hypertensive heart disease without heart failure; F31.9 Bipolar disorder, unspecified; F12.10 Cannabis abuse, uncomplicated; Z88.5 Allergy status to narcotic agent; Z88.1 Allergy status to other antibiotic agents; Z79.899 Other long term (current) drug therapy; Z88.2 Allergy status to sulfonamides
CPT/HCPCS: 36415; 80053; 82150; 83690; 85008; 85025; 96372; 96374; 99284; J1630; J2270

== ENCOUNTER 2023-02-04 12:31 | Emergency (ER) | payer MEDICARE, BC ==
[~2023-02-04] VITALS: Ht 157.5 cm; Wt 49.6 kg
[2023-02-04 12:34] VITALS: BP 169/79; PULSE 89; RESP 16; TEMP 98.3; O2SAT 98
--- NOTE | 2023-02-04 15:21 | NUR ---
RINGS REMOVED BY EMT WILL.
== END 2023-02-04 16:12 | disposition home or self-care (01) ==
LOC: ER 12:32
DX: S92.342A Displaced fracture of fourth metatarsal bone, left foot, initial encounter for closed fracture (principal); S60.455A Superficial foreign body of left ring finger, initial encounter; I10 Essential (primary) hypertension; F12.90 Cannabis use, unspecified, uncomplicated; Z88.8 Allergy status to other drugs, medicaments and biological substances; Z91.041 Radiographic dye allergy status; Z88.2 Allergy status to sulfonamides; Z90.49 Acquired absence of other specified parts of digestive tract; Z98.51 Tubal ligation status; W19.XXXA Unspecified fall, initial encounter; Y93.89 Activity, other specified; Y92.89 Other specified places as the place of occurrence of the external cause; Y99.8 Other external cause status
CPT/HCPCS: 29125; 73130; 99284; A4565; A6449

== ENCOUNTER 2023-02-11 18:32 | Emergency (ER) | payer MEDICARE, BC ==
[~2023-02-11] VITALS: Ht 157.5 cm; Wt 45.5 kg
[2023-02-11 18:41] VITALS: BP 154/74; PULSE 84; RESP 18; TEMP 98.8; O2SAT 98
== END 2023-02-11 19:01 | disposition left against medical advice (07) ==
LOC: ER 18:33
DX: R22.32 Localized swelling, mass and lump, left upper limb (principal); Z53.21 Procedure and treatment not carried out due to patient leaving prior to being seen by health care provider
CPT/HCPCS: 99281

== ENCOUNTER 2025-02-27 11:33 | Outpatient (CLI) | payer MEDICARE ==
[2025-02-27 12:03] LABS: MEAN PLATELET VOLUME 10.4 FL (7.4-10.4); RED CELL DISTRIBUTION WIDTH 13.2 % (11.5-14.5)
[2025-02-27 12:24] LABS: CHOL/HDL RATIO 3.4 (0.00-4.99); CREATININE 0.87 MG/DL (0.40-0.90); LDL CHOLESTEROL 100 MG/DL (50-100); TOTAL CARBON DIOXIDE 27.9 MMOL/L (24-32); eGFR 65 ML/MIN
--- NOTE | 2025-02-27 12:58 | RADIOLOGY REPORT ---
INDICATION: ABNORMAL WEIGHT GAIN TECHNIQUE: Multiple real-time sonographic images of the abdomen were obtained. COMPARISON: CT ABDOMEN PELVIS on DOS: 09/16/22, CT ABDOMEN PELVIS on DOS: 07/03/22, CT ABDOMEN PELVIS on DOS: 04/26/22, CT ABDOMEN PELVIS on DOS: 12/01/21 FINDINGS: The liver is homogenous in echogenicity. The liver measures 15cm. No intrahepatic biliary ductal dilatation is noted. Gallbladder is surgically absent. The common duct measures 0.3 cm and is unremarkable. No pericholecystic fluid is noted. The right kidney measures 9.4 cm. No hydronephrosis. The left kidney measures 10.4cm. No hydronephrosis. There is a right renal cyst measuring 1.5 cm. The spleen measures 9.4 cm, within normal limits. The echogenicity is within normal limits. The pancreas is not well visualized due to obscuration from bowel gas. The visualized portions of the IVC and aorta are grossly unremarkable. IMPRESSION: Status post cholecystectomy. There is a right renal cyst measuring 1.5 cm.
== END 2025-02-27 23:59 | disposition home or self-care (01) ==
LOC: RAD 11:33
PROVIDERS: ATTEND Nurse Practitioner Family
DX: N28.1 Cyst of kidney, acquired (principal); R63.5 Abnormal weight gain; R10.13 Epigastric pain; E78.5 Hyperlipidemia, unspecified; Z90.49 Acquired absence of other specified parts of digestive tract
CPT/HCPCS: 36415; 76700; 80053; 80061; 83036; 83690; 85025